=== PATIENT | male | born 1940 | race African-American/Black ===

== ENCOUNTER 2023-05-06 17:36 | Emergency (ER) | payer OTHER ==
[~2023-05-06] VITALS: Ht 182.9 cm; Wt 59.0 kg
[~2023-05-06 17:36] MED LIST: AMLO10TA80 PO; BICA50TA7 PO; TERA10CA4 PO
[2023-05-06 17:38] VITALS: O2SAT 98
[2023-05-06] MEDS ORDERED: SODIUM CHLORIDE 0.9% 1,000 ML IV ONE (18:00)
[2023-05-06] MEDS ORDERED: SODIUM CHLORIDE 0.9% 1000ML BAG (SEPSIS BOLUS) IV ONE (18:30)
[2023-05-06 18:52] LABS: CLARITY URINE TURBID (CLEAR); COLOR URINE DARK YELLOW (YELLOW); GLUCOSE URINE NEGATIVE (NEGATIVE); KETONES URINE NEGATIVE (NEGATIVE); LEUKOCYTE ESTERASE URINE 3+ (NEGATIVE); NITRITE URINE POSITIVE (NEGATIVE); OCCULT BLOOD URINE NEGATIVE (NEGATIVE); PH URINE >=9.0 (4.5-8.0); PROTEIN URINE 2+ (NEGATIVE); SPECIFIC GRAVITY URINE 1.019 (1.005-1.030)
[2023-05-06 19:06] LABS: RBC URINE 0-2 /hpf (0-2)
[2023-05-06 19:07] LABS: BACTERIA URINE 2+; SQUAMOUS EPITHELIAL CELL URINE FEW /lpf (RARE/1+)
[2023-05-06 19:13] LABS: BASOPHILS % 0.5 % (0.0-2.0); EOSINOPHILS % 0.5 % (0.0-5.0); HEMOGLOBIN. 12.7 g/dL (14.0-18.0); LYMPHOCYTES % 27.2 % (20.0-50.0); MEAN CORPUSCULAR HEMOGLOBIN 28.5 pg (28.0-32.0); MEAN CORPUSCULAR HGB CONC 32.4 g/dL (31.0-37.0); MEAN CORPUSCULAR VOLUME 87.9 fL (80.0-94.0); MEAN PLATELET VOLUME 8.2 fl (7.4-10.4); MONOCYTES % 8.2 % (2.0-8.0); NEUTROPHILS % 63.6 % (40.0-76.0); PLATELET 341 x1000/uL (130-400); RED BLOOD CELL COUNT 4.44 mill/uL (4.7-6.1); RED CELL DISTRIBUTION WIDTH 16.1 % (11.6-14.6); WHITE BLOOD COUNT 8.4 x1000/uL (4.5-11.0)
[2023-05-06 19:22] LABS: CHLORIDE 104 mEq/L (98-107); INDEX HEMOLYSI 5 (1-3); INDEX ICTERIC 1 (1-4); INDEX LIPEMIC 1 (1-3); SODIUM 136 mEq/L (136-145)
[2023-05-06 19:25] LABS: POTASSIUM 5.3 mEq/L (3.5-5.1)
[2023-05-06 19:32] LABS: ALANINE AMINOTRANSFERASE 20 IU/L (13-61); ALBUMIN 3.6 g/dL (3.4-5.0); ASPARTATE AMINOTRANSFERASE 40 IU/L (15-37); BILIRUBIN TOTAL 0.6 mg/dL (0.1-1.0); CALCIUM 10.2 mg/dL (8.5-10.1); CARBON DIOXIDE 28 mEq/L (21-32); CREATININE 0.6 mg/dL (0.6-1.3); GLUCOSE 99 mg/dL (70-105); NT PRO B-TYPE NATRIURETIC PEP 109 pg/mL (5-125); PROTEIN TOTAL 8.9 g/dL (6.0-8.3); TROPONIN I HIGH SENSITIVITY 10 ng/L (<78); UREA NITROGEN BLOOD 14 mg/dL (7-21)
[2023-05-06] MEDS ORDERED: PIPERACILLIN/TAZ 3.375G PREMIX 50 ML IV ONE (19:45)
[2023-05-06] MEDS ORDERED: HYDRALAZINE 20MG/ML VIAL IV ONE (21:15)
[2023-05-06 21:36] LABS: INR 1.1; PARTIAL THROMBOPLASTIN TIME 25.4 sec (23.4-31.0); PROTHROMBIN TIME 11.4 sec (9.6-11.0)
[2023-05-06 22:33] VITALS: BP 131/68; PULSE 105; RESP 20; TEMP 98
== END 2023-05-06 23:46 | disposition short-term general hospital (02) ==
LOC: ER 17:36
DX: R53.1 Weakness (principal); N39.0 Urinary tract infection, site not specified; R62.7 Adult failure to thrive; Z86.73 Personal history of transient ischemic attack (TIA), and cerebral infarction without residual deficits; Z20.822 Contact with and (suspected) exposure to COVID-19
CPT/HCPCS: 99285; 96365; 70450; 71045; 96361; 96375; 87426; 80053; 81003; 83880; 83605; 85025; 85610; 85730; 87040; 87086; 87186; 84484; 87077; 36415; 93005; J0360; J2543; J7030; C9803

== ENCOUNTER 2023-07-08 19:19 | Emergency (ER) | payer OTHER ==
[~2023-07-08] VITALS: Ht 175.3 cm; Wt 65.0 kg
[2023-07-08 19:41] VITALS: O2SAT 97
[2023-07-09 19:15] LABS: CLARITY URINE TURBID (CLEAR); COLOR URINE YELLOW (YELLOW); GLUCOSE URINE NEGATIVE (NEGATIVE); KETONES URINE 1+ (NEGATIVE); LEUKOCYTE ESTERASE URINE 3+ (NEGATIVE); NITRITE URINE NEGATIVE (NEGATIVE); OCCULT BLOOD URINE 2+ (NEGATIVE); PH URINE >=9.0 (4.5-8.0); PROTEIN URINE 2+ (NEGATIVE); SPECIFIC GRAVITY URINE 1.013 (1.005-1.030); UROBILINOGEN URINE 0.2 E.U./dL (0.2-1.0)
[2023-07-09 19:20] LABS: HEMATOCRIT. 32.9 % (42.0-52.0); HEMOGLOBIN. 10.7 g/dL (14.0-18.0); MEAN CORPUSCULAR HEMOGLOBIN 28.6 pg (28.0-32.0); MEAN CORPUSCULAR HGB CONC 32.6 g/dL (31.0-37.0); MEAN CORPUSCULAR VOLUME 87.8 fL (80.0-94.0); PLATELET 343 x1000/uL (130-400); RED BLOOD CELL COUNT 3.75 mill/uL (4.7-6.1); WHITE BLOOD COUNT 17.2 x1000/uL (4.5-11.0)
[2023-07-09 19:24] LABS: DIFFERENTIAL COMMENT 1
[2023-07-09] MEDS ORDERED: CEFTRIAXONE 1GM PREMIX 50 ML IV STA (19:30)
[2023-07-09 19:38] LABS: BACTERIA URINE 4+; SQUAMOUS EPITHELIAL CELL URINE FEW /lpf (RARE/1+)
[2023-07-09 19:38] LABS: ALANINE AMINOTRANSFERASE 15 IU/L (10-49); ALBUMIN 4.1 g/dL (3.2-4.8); ASPARTATE AMINOTRANSFERASE 23 IU/L (<34); BILIRUBIN TOTAL 0.8 mg/dL (0.1-1.0); CALCIUM 10.3 mg/dL (8.7-10.4); CARBON DIOXIDE 21 mEq/L (21-32); CHLORIDE 109 mEq/L (98-107); GLUCOSE 128 mg/dL (70-105); POTASSIUM 3.8 mEq/L (3.5-5.1); PROTEIN TOTAL 7.9 g/dL (6.0-8.3); SODIUM 142 mEq/L (136-145); UREA NITROGEN BLOOD 25 mg/dL (9-23)
[2023-07-09 19:39] LABS: AMORPHOUS SEDIMENT URINE 1+ /lpf; WBC URINE 50-100 /hpf (0-2)
[2023-07-09 20:44] LABS: ANISOCYTOSIS 1+; PLATELET ESTIMATE NORMAL
[2023-07-09] MEDS ORDERED: SODIUM CHLORIDE 0.9% 1,000 ML IV ONE (22:30)
[2023-07-09] MEDS ORDERED: ACETAMINOPHEN 325MG TABLET PO ONE (22:30)
[2023-07-09] MEDS ORDERED: CEFTRIAXONE 1GM PREMIX 50 ML IV NR (22:45)
[2023-07-10 01:30] VITALS: BP 131/68; PULSE 87; RESP 18; TEMP 98.6
== END 2023-07-10 06:22 | disposition short-term general hospital (02) ==
LOC: ER 19:19 → CANBEDREQ 07-11 20:53
DX: T83.091A Other mechanical complication of indwelling urethral catheter, initial encounter (principal); I10 Essential (primary) hypertension; Z86.73 Personal history of transient ischemic attack (TIA), and cerebral infarction without residual deficits
CPT/HCPCS: 99285; 80053; 81003; 83605; 85025; 87086; 36415; 51702; 96365; J0696; J7030; 99281